=== PATIENT | male | born 1970 | race Caucasian/White ===

== ENCOUNTER 2018-07-21 10:14 | Day surgery (SDC) | payer OTHER, BC ==
[2018-07-21] MEDS ORDERED: Lidocaine 2% PF (10 ml) Amp ONE (11:29)
[2018-07-21] MEDS ORDERED: Iohexol 350mgl/ml 50 ML ONE (11:29)
[2018-07-21] MEDS ORDERED: Iodixanol 320 MG/ML 200 ML BOTTLE IV ONE (11:30)
[2018-07-21 11:58] VITALS: BMI 30.9
[2018-07-21] MEDS ORDERED: Midazolam 2 MG/2 ML VIAL ONE ×2 (12:11→12:50)
[2018-07-21] MEDS ORDERED: Lidocaine PF 2% (5 ml) Inj (For Cardiac Arrhy) ONE (13:20)
[2018-07-21] MEDS ORDERED: Sodium Chloride 0.9% 1,000 ML IV SCH (13:45)
--- NOTE | 2018-07-21 18:01 | CARD ---
APPROVED REPORT Date of service: 07/21/2018 EKG Measurement Heart [id number] SD [id number] <Conclusion> Normal sinus rhythm with sinus arrhythmia Nonspecific T wave abnormality Prolonged QT Abnormal ECG
[2018-07-21 18:39] VITALS: BP 134/74; PULSE 81; RESP 20; TEMP 98.4
--- NOTE | 2018-07-26 22:41 | CARDCATH ---
PROCEDURE DATE: 07/21/2018 PROCEDURES: Percutaneous intervention and drug-eluting stent placement of the ramus coronary artery. CLINICAL INDICATIONS: 1. Chest pain. 2. Coronary artery disease, history of stent placement. 3. [id number] myocardial infarction. 4. Hypertension. 5. Hyperlipidemia. PERFORMING PHYSICIAN: Rod Quintana MD. REFERRING PHYSICIAN: . PROCEDURE FINDINGS: After informed consent, the patient was prepped and draped in the usual sterile fashion. A 2% lidocaine was given in the right groin for the local anesthesia. Using micropuncture technique, 6-Stateless sheath was introduced into the right common femoral artery. The patient was premedicated with aspirin, Plavix and IV heparin. ACT was maintained above 250 throughout the procedure. A 6-Stateless XBLAD 3.5 guiding catheter engaged into the left main coronary artery. Contrast was injected and left coronary angiogram was done. The coronary angiogram revealed 90-95% in-stent restenosis of the proximal ramus coronary artery. There was a JANEEN 2 flow distal to the lesion. Runthrough coronary wire introduced into ramus coronary artery. The lesion was predilated using 2 x 25 compliant balloon. Later stented with 2.25 x 38 Resolute [place] drug-eluting stent. There were excellent final angiographic results and brisk JANEEN 3 flow. Successful balloon angioplasty and coronary intervention of the ramus coronary artery. RECOMMENDATIONS: Continue dual-antiplatelet therapy for 1 year. Continue beta-blockers, aspirin and statins for life. Rod Quintana MD
== END 2018-07-21 20:36 | disposition short-term general hospital (02) ==
LOC: CATH 10:14 → 2RSO 13:57 → CATH 20:36
PROVIDERS: ATTEND Internal Medicine Cardiovascular Disease
DX: I21.4 Non-ST elevation (NSTEMI) myocardial infarction (principal); I25.10 Atherosclerotic heart disease of native coronary artery without angina pectoris; I10 Essential (primary) hypertension; E78.5 Hyperlipidemia, unspecified; J45.909 Unspecified asthma, uncomplicated; Z79.82 Long term (current) use of aspirin; E78.00 Pure hypercholesterolemia, unspecified; Z91.018 Allergy to other foods
CPT/HCPCS: 85175; 93005; 99152; C1725 ×2; C1769 ×2; C1874; C1887; C1894; C9600; J1644 ×2; J2250; J3010; J7030; Q9966; Q9967